=== PATIENT | male | born 2000 | race Caucasian/White ===

== ENCOUNTER 2021-08-23 17:31 | Emergency (ER) | payer OTHER, SELFPAY ==
--- NOTE | ~2021-08-23 | XR_ITS ---
EXAMINATION: XR CHEST CLINICAL INFORMATION: Cough, suspected pneumonia COMPARISON: There are no prior studies for comparison. TECHNIQUE: Frontal view of the chest was obtained. FINDINGS: The lungs are normally expanded. The right lung appears clear. There is reticular opacity in the left lower lung which is suspicious for a mild infiltrate. There is no dense consolidation. The pleural spaces are clear. The mediastinum is normal. There is no vascular congestion. XR/XR chest 1V IMPRESSION: Mild reticular infiltrate in the left lower lung, suspicious for pneumonia.
--- NOTE | 2021-08-23 17:45 | ED.URI ---
HPI - URI/Sore Throat General Chief Complaint: Upper Respiratory Symptoms Stated Complaint: Coughing/?Pneumonia Time Seen by Provider: 08/23/21 17:44 Source: patient Mode of arrival: ambulatory Limitations: no limitations History of Present Illness HPI Narrative: 21-year-old male presenting to the ER with coughing and concern for pneumonia. He tested positive for COVID 10 days ago. He reports initially his symptoms were headache, dizziness which both resolved. Then he had body aches and fatigue. He developed a cough about a week ago. His lingering and is now productive of brown colored phlegm. Sometimes the phlegm is clear and white. He is not short of breath or having any chest pain. No longer having any fever or chills. He complains he still cannot taste well and a lot of food does not taste good to him, so his appetite has not been great. He is drinking adequately and staying hydrated. MD elicited complaint: cough Pertinent past history: other (COVID-19) Onset (ago): week(s) (1) Consistency: intermittent Severity: moderate Description of mucous: clear, watery and other (Brown) Able to tolerate fluids by mouth: Yes Exacerbating factors: nothing Relieving factors: nothing Associated symptoms: denies other symptoms Treatments prior to arrival: none Related Data Previous Rx's Medication Instructions Recorded azithromycin 250 mg tablet See Rx Instructions .ROUTE 08/23/21 (Zithromax Z-Emiliano) .COMPLEX #6 tab prednisone 20 mg tablet 40 mg PO DAILY #10 tab 08/23/21 Allergies Allergy/AdvReac Type Severity Reaction Status Date / Time Unable to Assess Allergy Unverified 08/23/21 17:44 Review of Systems Review of Systems: Constitutional: No Fever, No Chills ENT/Mouth: No sore throat, No Rhinorrhea, No Swallowing Difficulty Cardiovascular: No Chest Pain, No SOB Respiratory: + Cough, + Sputum, No Wheezing, No dyspnea Gastrointestinal: No Nausea, No Vomiting, No Diarrhea, No abdominal Pain Musculoskeletal: No joint pain, No Myalgias Skin: No Skin Lesions, No rash Neuro: No Weakness, No Numbness, No Dizziness, No Headache Psych: No Anxiety/Panic, No Depression Heme/Lymph: No Bruising, No Lymphadenopathy Endocrine: No Polyuria, No Polydipsia PMFSH Social History Social History Advance Directives: No Advance Directives Information Provided: Yes Physical Exam Vital Signs: Vital Signs: Last Vital Signs Temp 97.8 F 08/23/21 18:00 Pulse 74 08/23/21 18:00 Resp 16 08/23/21 18:00 BP 130/62 08/23/21 18:00 Pulse Ox 100 08/23/21 18:00 Body Mass Index 28.8 Appearance: Alert. Oriented X3. No acute distress. Appears well. Eyes: Pupils equal, round and reactive to light. ENT: Pharynx normal. Neck: Normal inspection. Neck supple. CVS: Normal heart rate and rhythm. Pulses normal. Respiratory: No respiratory distress. Breath sounds diminished at the bilateral bases. Skin: Skin warm and dry. Normal skin color. Normal skin turgor. No rashes. Extremities: No lower extremity edema. No calf tenderness. Neuro: Oriented X 3. Grossly normal, nonfocal. Course Course Course Narrative: 21-year-old male with COVID-19 infection diagnosed 10 days ago presenting with ongoing cough which is newly productive of dark brown phlegm. He is not hypoxic, having any respiratory distress, dyspnea or shortness of breath. He is nontoxic appearing with normal vital signs. Lung sounds are slightly diminished in left lower lobe and right lower lobe bilaterally, no wheezing or rhonchi. X-ray is pending to evaluate for possible pneumonia. Reevaluation(s) Reevaluation #1: Chest x-ray shows a left lower lobe pneumonia. Will treat with azithromycin and prednisone. Stable for discharge home with supportive care and antibiotics. Patient agrees with plan MDM - URI/Sore Throat Lab Data Labs: Lab Results 08/23/21 Range/Units 17:56 COVID-19 (UQIN) Positive A (Negative) COVID-19 Clin Com See Note Critical Care Time Critical Care Time Critical Care Time: No Discharge Plan Discharge Clinical Impression: Pneumonia Qualifiers: Pneumonia type: due to unspecified organism Laterality: left Lung location: lower lobe of lung Qualified Code(s): J18.9 - Pneumonia, unspecified organism Patient Disposition: Home, Self-Care Instructions: Pneumonia (ED) Additional Instructions: X-ray showed a possible left lower lobe pneumonia Take the prescribed antibiotics and steroids as directed Rest and drink plenty of fluids. Recommend [id number] Mucinex 1200 mg 2 times a day for the next 5 days. Follow-up with your doctor as needed Do not go on public as you are still not feeling well and may still be contagious If you develop new or worsening symptoms call 911 or come back to the ER for further evaluation. Prescriptions: New prednisone 20 mg tablet 40 mg PO DAILY Qty: 10 RF: 0 azithromycin [Zithromax Z-Emiliano] 250 mg tablet See Rx Instructions .ROUTE .COMPLEX Qty: 6 RF: 0 Interventions: ED Discharge Assessment Last Done: 08/23/21 18:37 Discharge Date/Time: 08/23/21 18:38
[2021-08-23 17:46] VITALS: PULSE 84; RESP 16; TEMP 37.1; O2SAT 98; BMI 28.8
[2021-08-23 18:00] VITALS: BP 130/62; PULSE 74; RESP 16; TEMP 36.6; O2SAT 100
[2021-08-23 18:24] LABS: COVID-19 Test Positive (Negative)
== END 2021-08-23 18:38 | disposition home or self-care (01) ==
PROVIDERS: Physician Assistant; Emergency Provider Emergency Medicine Emergency Medical Services
DX: J18.9 Pneumonia, unspecified organism (principal); R05.9 Cough, unspecified; Z79.899 Other long term (current) drug therapy; Z20.822 Contact with and (suspected) exposure to COVID-19
CPT/HCPCS: 36415; 71045; 87635; 99283; 99284